=== PATIENT | female | born 1940 | race Two or more races ===

== ENCOUNTER 2016-05-23 19:02 | Emergency (ER) | payer SELFPAY ==
[~2016-05-23] VITALS: Ht 170.2 cm; Wt 59.0 kg
[2016-05-23] MEDS ORDERED: SODIUM CHLORIDE 0.9% 1,000 ML IV ONE (19:48)
[2016-05-23] MEDS ORDERED: LORazepam 2MG/ML-1ML VIAL IV ONE (20:00)
[2016-05-23] MEDS ORDERED: LORazepam 2MG/ML-1ML VIAL IM ONE (20:00)
[2016-05-23] MEDS ORDERED: HALOPERIDOL LACTATE 5 MG/ML INJ VIAL IM ONE (20:00)
[2016-05-23 21:53] LABS: Basophils # (auto) 0 uL; Eosinophils # (auto) 0 uL; Hematocrit 36.3 % (36.0-46.0); Hemoglobin 11.9 g/dL (12.2-16.2); Lymphocytes # (auto) 0.8 uL; Lymphocytes % (auto) 5.9 % (10.0-50.0); Mean Corpuscular Hemoglobin 30.2 pg (28.0-32.0); Mean Corpuscular Hgb Conc. 32.9 g/dL (32.0-36.0); Mean Corpuscular Volume 91.9 fL (80.0-100.0); Mean Platelet Volume 8.4 fL (7.4-10.4); Monocytes # (auto) 1.1 uL; Neutrophils # (auto) 11.8 uL; Neutrophils % (auto) 86.1 % (37.0-80.0); Platelet Count (auto) 233 10^3/uL (140-450); Red Cell Distribution Width 13.6 % (11.6-16.0); White Blood Cell 13.7 10^3/uL (4.4-10.8)
[2016-05-23 22:09] LABS: INR 1.11 (0.9-1.15); Partial Thromboplastin Time 27.2 sec (22.64-33.71); Prothrombin Time 11.4 sec (9.37-12.3)
[2016-05-23] MEDS ORDERED: cefTRIAXone W LIDOCAINE 1 GM IM IM ONE (22:15)
[2016-05-23 22:17] LABS: BUN/Creatinine Ratio 17.4; Calcium 8.1 mg/dL (8.5-10.1); Potassium 4.1 mmol/L (3.5-5.1)
[2016-05-23 22:19] LABS: Bilirubin, Total 0.6 mg/dL (0.2-1.0)
[2016-05-24 00:14] VITALS: BP 134/80
== END 2016-05-24 01:03 | disposition home or self-care (01) ==
LOC: ER 19:22
DX: F03.90 Unspecified dementia, unspecified severity, without behavioral disturbance, psychotic disturbance, mood disturbance, and anxiety (principal); W18.39XA Other fall on same level, initial encounter; Y93.89 Activity, other specified; Y99.8 Other external cause status; Y92.89 Other specified places as the place of occurrence of the external cause
CPT/HCPCS: 36415; 70450; 71010; 80053; 81002; 84484; 85025; 85049; 85610; 85730; 93005; 96372; 96374; 99285; J0696; J1630; J2060